=== PATIENT | male | born 1960 | race Caucasian/White ===

== ENCOUNTER 2019-06-17 23:20 | Emergency (ER) | payer OTHER ==
[~2019-06-17] VITALS: Ht 182.9 cm; Wt 81.6 kg
[2019-06-18 01:15] VITALS: BP 155/90
[2019-06-18] MEDS ORDERED: DexAMETHasone SOD PHOS 10MG/1ML VIAL INJ IM ONE (02:00)
[2019-06-18] MEDS ORDERED: KETOROLAC TROMETH 60MG/2ML VIAL IM ONE (02:00)
== END 2019-06-18 02:45 | disposition home or self-care (01) ==
LOC: ER 23:20
DX: S33.5XXA Sprain of ligaments of lumbar spine, initial encounter (principal); X58.XXXA Exposure to other specified factors, initial encounter; Y93.89 Activity, other specified; Y99.8 Other external cause status; Y92.89 Other specified places as the place of occurrence of the external cause
CPT/HCPCS: 72100; 96372; 99283; J1100; J1885